=== PATIENT | female | born 1960 | race African-American/Black ===

== ENCOUNTER 2016-11-28 10:13 | Emergency (ER) | payer MEDICAID, OTHER ==
[2016-11-28 10:28] VITALS: BP 94/54
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
== END 2016-11-28 13:02 | disposition home or self-care (01) ==
LOC: ER 10:13
DX: S80.211A Abrasion, right knee, initial encounter (principal); S70.211A Abrasion, right hip, initial encounter; M79.1 Myalgia; R07.81 Pleurodynia; F17.200 Nicotine dependence, unspecified, uncomplicated; V29.88XA Motorcycle rider (driver) (passenger) injured in other specified transport accidents, initial encounter
CPT/HCPCS: 99284

== ENCOUNTER 2017-03-19 14:27 | Emergency (ER) | payer MEDICAID ==
[2017-03-19 14:35] VITALS: BP 128/76
[2017-03-19] MEDS ORDERED: DIPHENHYDRAMINE HCL 50 MG CAPSULE PO ONE (16:55)
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
== END 2017-03-19 17:05 | disposition home or self-care (01) ==
LOC: ER 14:27
DX: S80.861A Insect bite (nonvenomous), right lower leg, initial encounter (principal); W57.XXXA Bitten or stung by nonvenomous insect and other nonvenomous arthropods, initial encounter; F17.210 Nicotine dependence, cigarettes, uncomplicated; I50.9 Heart failure, unspecified; I25.10 Atherosclerotic heart disease of native coronary artery without angina pectoris; E78.00 Pure hypercholesterolemia, unspecified; I11.0 Hypertensive heart disease with heart failure; K21.9 Gastro-esophageal reflux disease without esophagitis; I25.2 Old myocardial infarction; Z95.810 Presence of automatic (implantable) cardiac defibrillator
CPT/HCPCS: 99281; J3490

== ENCOUNTER 2018-03-18 14:44 | Emergency (ER) | payer MEDICAID ==
[2018-03-18] MEDS ORDERED: ONDANSETRON 4 MG TAB.RAPDIS PO ONE (15:11)
--- NOTE | 2018-03-18 15:47 | RADIOLOGY REPORT (SQ) ---
EXAM DESCRIPTION: ACUTE ABDOMEN SERIES COMPLETED DATE/TIME: 03/18/2018 3:33 pm REASON FOR STUDY: abd pain COMPARISON: None. NUMBER OF VIEWS: Three views. TECHNIQUE: Frontal chest, supine abdomen and upright/decubitus abdomen radiographic images acquired. LIMITATIONS: None. FINDINGS: CHEST: Lungs clear of infiltrates. FREE AIR: None. No abnormal gas collections. BOWEL GAS PATTERN: Nonobstructive pattern. No dilated loops or air fluid levels. CALCIFICATIONS: No suspicious calcifications. HARDWARE: None in the abdomen. SOFT TISSUES: No gross mass or suggestion of organomegaly. BONES: No acute fracture. No worrisome bone lesions. OTHER: No other significant finding. IMPRESSION: NO RADIOGRAPHIC EVIDENCE FOR ACUTE ABDOMINAL DISEASE. Minimal fecal material. TECHNICAL DOCUMENTATION: JOB ID: [id number] [employer]- All Rights Reserved Reading location - IP/workstation name: [email or web address]
[2018-03-18 16:01] LABS: ABSOLUTE EOSINOPHILS # (AUTO) 0.2 10^3/uL (0.0-0.6); ABSOLUTE MONOCYTES (AUTO) 0.6 10^3/uL (0.1-1.4); ABSOLUTE NEUT (AUTO) 4.5 10^3/uL (1.7-8.2); BASOPHILS % (AUTO) 0.3 % (0-2); EOSINOPHILS % (AUTO) 2.7 % (0-6); HEMOGLOBIN 12.8 g/dL (12.0-15.5); LYMPHOCYTES % (AUTO) 16.4 % (13-45); MEAN CORPUSCULAR HEMOGLOBIN 27.9 pg (27.0-33.4); MEAN CORPUSCULAR HGB CONC 32.8 g/dL (32.0-36.0); MEAN CORPUSCULAR VOLUME 85 fl (80-97); MONOCYTES % (AUTO) 9.5 % (3-13); PLATELET COUNT 281 10^3/uL (150-450); RED BLOOD COUNT 4.59 10^6/uL (3.72-5.28); RED CELL DISTRIBUTION WIDTH 14.7 % (11.5-14.0); SEGMENTED NEUTROPHILS % (AUTO) 71.1 % (42-78); TOTAL CELLS COUNTED % (AUTO) 100 %; WHITE BLOOD COUNT 6.3 10^3/uL (4.0-10.5)
[2018-03-18 16:23] LABS: ALANINE AMINOTRANSFERASE 25 U/L (9-52); ALBUMIN 4.4 g/dL (3.5-5.0); ALKALINE PHOSPHATASE 93 U/L (38-126); ANION GAP 9 (5-19); ASPARTATE AMINO TRANSFERASE 30 U/L (14-36); BILIRUBIN,DIRECT 0.5 mg/dL (0.0-0.4); BILIRUBIN,TOTAL 0.7 mg/dL (0.2-1.3); BLOOD UREA NITROGEN 21 mg/dL (7-20); CALCIUM 9.8 mg/dL (8.4-10.2); CARBON DIOXIDE 23 mmol/L (22-30); CHLORIDE 112 mmol/L (98-107); GLUCOSE 107 mg/dL (75-110); LIPASE 72.6 U/L (23-300); POTASSIUM 4.2 mmol/L (3.6-5.0); SODIUM 143.9 mmol/L (137-145); TOTAL PROTEIN 7.3 g/dL (6.3-8.2)
--- NOTE | 2018-03-18 16:33 | ER Document Report ---
ED General - General Chief Complaint: Dizziness Stated Complaint: COLD CHILLS,VOMITING,DIZZINESS Time Seen by Provider: 03/18/18 15:01 TRAVEL OUTSIDE OF THE [place] IN LAST 30 DAYS: No - HPI Patient complains to provider of: Dizziness vomiting cold sweats chills hot flashes Notes: Patient coming in with above-stated symptoms ongoing for greater than 24 hours. Patient states she cannot afford the $3 co-pay to see her family physician therefore came to the ER today for her symptoms patient is requesting that I prescribe her a progesterone cream that has helped her in the past. Patient denies any fevers denies any chest pain abdominal pain otherwise is nontoxic upon my evaluation - Related Data Allergies/Adverse Reactions: lisinopril [Lisinopril] Allergy (Verified 03/18/18 14:45) Past Medical History - Social History Smoking Status: Current Some Day Smoker Chew tobacco use (# tins/day): No Frequency of alcohol use: Occasional Drug Abuse: None Family History: Arthritis, CAD, COPD, CVA, Hyperlipidemia, Hypertension, Malignancy, Thyroid Disfunction Patient has suicidal ideation: No Patient has homicidal ideation: No - Past Medical History Cardiac Medical History: Reports: Hx Congestive Heart Failure, Hx Coronary Artery Disease, Hx Heart Attack - "from prior drug abuse"; 2010 cath proves no heart attack, Hx Hypercholesterolemia, Hx Hypertension Denies: Hx Peripheral Vascular Disease, Hx Pulmonary Embolism Pulmonary Medical History: Reports: Hx Bronchitis Denies: Hx COPD, Hx Pneumonia, Hx Tuberculosis Renal/ Medical History: Denies: Hx Peritoneal Dialysis GI Medical History: Reports: Hx Gastroesophageal Reflux Disease, Hx Irritable Bowel. Denies: Hx Hepatitis Musculoskeltal Medical History: Reports Hx Arthritis - back, Reports Hx Musculoskeletal Deformity - Degenerative disc disease, Reports Hx Musculoskeletal Trauma - Left leg Psychiatric Medical History: Reports: Hx Anxiety, Hx Depression, Hx Post Traumatic Stress Disorder Denies: Hx Schizoaffective Disorder Traumatic Medical History: Reports: Hx Fractures - left leg Infectious Medical History: Denies: Hx Hepatitis, Hx HIV Past Surgical History: Reports: Hx Cardiac Catheterization, Hx Cardiac Surgery - Defib/pacemaker, Hx Section - x1, Hx Coronary Stent, Hx Orthopedic Surgery - BUNION SURGERY, Hx Tonsillectomy. Denies: Hx Pacemaker - defibrillator scheduled pacemaker in oct - Immunizations Immunizations up to date: Yes Hx Diphtheria, Pertussis, Tetanus Vaccination: Yes - 08/27/16 Hx Pneumococcal Vaccination: 10/16/12 Review of Systems - Review of Systems Constitutional: Other - Chills hot flashes nausea vomiting dizziness EENT: No symptoms reported Cardiovascular: No symptoms reported Respiratory: No symptoms reported Gastrointestinal: No symptoms reported Genitourinary: No symptoms reported Female Genitourinary: No symptoms reported Musculoskeletal: No symptoms reported Skin: No symptoms reported Hematologic/Lymphatic: No symptoms reported Neurological/Psychological: No symptoms reported -: Yes All other systems reviewed and negative Physical Exam - Vital signs Vitals: Temp Pulse Resp BP Pulse Ox 97.9 F 72 18 160/87 H 98 03/18/18 14:48 03/18/18 14:48 03/18/18 14:48 03/18/18 14:48 03/18/18 14:48 Interpretation: Normal - General General appearance: Appears well, Alert - HEENT Head: Normocephalic, Atraumatic Eyes: Normal Pupils: PERRL - Respiratory Respiratory status: No respiratory distress Chest status: Nontender Breath sounds: Normal Chest palpation: Normal - Cardiovascular Rhythm: Regular Heart sounds: Normal auscultation Murmur: No - Abdominal Inspection: Normal Distension: No distension Bowel sounds: Normal Tenderness: Nontender Organomegaly: No organomegaly - Back Back: Normal, Nontender - Extremities General upper extremity: Normal inspection, Nontender, Normal color, Normal ROM , Normal temperature General lower extremity: Normal inspection, Nontender, Normal color, Normal ROM , Normal temperature, Normal weight bearing. No: Johnna's sign - Neurological Neuro grossly intact: Yes Cognition: Normal Orientation: AAOx4 Remy Coma Scale Eye Opening: Spontaneous Remy Coma Scale Verbal: Oriented Remy Coma Scale Motor: Obeys Commands [place] Coma Scale Total: 15 Speech: Normal Motor strength normal: LUE, RUE, LLE, RLE Sensory: Normal - Psychological Associated symptoms: Normal affect, Normal mood - Skin Skin Temperature: Warm Skin Moisture: Dry Skin Color: Normal Course - Re-evaluation Re-evalutation: 03/18/18 20:37 Explained to patient that the progesterone cream will need to come from her primary care physician patient symptoms of nausea vomiting have improved with medications prescribed. Patient's dizziness although states that she still has mild dizziness when coming into the room is able to ambulate around the ER without any difficulty. Patient will be discharged home follow-up with PCP - Vital Signs Vital signs: Temp Pulse Resp BP Pulse Ox 97.6 F 60 17 151/95 H 98 03/18/18 16:43 03/18/18 16:43 03/18/18 16:43 03/18/18 16:43 03/18/18 16:43 - Laboratory Result Diagrams: 03/18/18 15:48 03/18/18 15:48 Laboratory results interpreted by me: 03/18/18 03/18/18 15:48 15:48 RDW 14.7 H Chloride 112 H BUN 21 H Direct Bilirubin 0.5 H Discharge - Discharge Clinical Impression: Tobacco abuse, Cold and hot flashes, Dizziness Nausea & vomiting Qualifiers: Vomiting type: unspecified Vomiting Intractability: unspecified Qualified Code( s): R11.2 - Nausea with vomiting, unspecified Condition: Good Disposition: HOME, SELF-CARE Instructions: Vomiting ([facility]) Additional Instructions: Your laboratory studies today did not show any acute pathology. Your x-ray does not show any signs abdominal injury. Would recommend she follow-up with your primary care physician. Take Tylenol and Motrin for pain control. Please take prescribed Zofran or Compazine for fever nausea vomiting. Return to ER symptoms worsen Prescriptions: Ondansetron HCl [Zofran 4 mg Tablet] 1 - 2 tab PO Q6 #30 tablet Prochlorperazine Maleate [Compazine] 5 mg PO Q6 #30 tablet Forms: Return to Work
[2018-03-18 16:44] VITALS: BP 151/95
== END 2018-03-18 16:45 | disposition home or self-care (01) ==
LOC: ER 14:44
DX: R11.2 Nausea with vomiting, unspecified (principal); R42 Dizziness and giddiness; R68.83 Chills (without fever); F17.200 Nicotine dependence, unspecified, uncomplicated; I50.9 Heart failure, unspecified; I10 Essential (primary) hypertension; I25.10 Atherosclerotic heart disease of native coronary artery without angina pectoris; E78.00 Pure hypercholesterolemia, unspecified; Z95.810 Presence of automatic (implantable) cardiac defibrillator
CPT/HCPCS: 99284; 36415; 83690; 85025; 80053; 74022; S0119

== ENCOUNTER 2019-11-19 23:28 | Emergency (ER) | payer MEDICARE, MEDICAID ==
[~2019-11-19 23:28] MED LIST: NORMAL SALINE 1000 ML 1,000 ML IV ONE
[2019-11-20 00:20] LABS: ABSOLUTE EOSINOPHILS # (AUTO) 0.2 10^3/uL (0.0-0.6); ABSOLUTE LYMPHOCYTES (AUTO) 1.7 10^3/uL (0.5-4.7); ABSOLUTE MONOCYTES (AUTO) 0.7 10^3/uL (0.1-1.4); BASOPHILS % (AUTO) 0.1 % (0-2); EOSINOPHILS % (AUTO) 2.6 % (0-6); HEMATOCRIT 41.5 % (36.0-47.0); HEMOGLOBIN 13.2 g/dL (12.0-15.5); LYMPHOCYTES % (AUTO) 19.4 % (13-45); MEAN CORPUSCULAR HEMOGLOBIN 27.2 pg (27.0-33.4); MEAN CORPUSCULAR HGB CONC 31.9 g/dL (32.0-36.0); MEAN CORPUSCULAR VOLUME 85 fl (80-97); MONOCYTES % (AUTO) 8.1 % (3-13); PLATELET COUNT 362 10^3/uL (150-450); RED BLOOD COUNT 4.87 10^6/uL (3.72-5.28); RED CELL DISTRIBUTION WIDTH 15.5 % (11.5-14.0); SEGMENTED NEUTROPHILS % (AUTO) 69.8 % (42-78); TOTAL CELLS COUNTED % (AUTO) 100 %; WHITE BLOOD COUNT 8.6 10^3/uL (4.0-10.5)
[2019-11-20 00:33] LABS: ALBUMIN 4.9 g/dL (3.5-5.0); ALKALINE PHOSPHATASE 102 U/L (38-126); ANION GAP 14 (5-19); ASPARTATE AMINO TRANSFERASE 104 U/L (14-36); BILIRUBIN,DIRECT 0.6 mg/dL (0.0-0.4); BILIRUBIN,TOTAL 0.6 mg/dL (0.2-1.3); BLOOD UREA NITROGEN 25 mg/dL (7-20); CALCIUM 9.7 mg/dL (8.4-10.2); CARBON DIOXIDE 14 mmol/L (22-30); CHLORIDE 108 mmol/L (98-107); GLUCOSE 148 mg/dL (75-110); TOTAL PROTEIN 8.2 g/dL (6.3-8.2)
[2019-11-20] MEDS ORDERED: NORMAL SALINE 1000 ML 1,000 ML IV ONE (01:23)
--- NOTE | 2019-11-20 06:13 | EKG REPORT ---
SEVERITY:- ABNORMAL ECG - ATRIAL-VENTRICULAR DUAL-PACED RHYTHM : Confirmed by: Britton Witt MD 20-Nov-2019 06:13:04
[2019-11-20] MEDS ORDERED: RINGERS SOLUTION,LACTATED 1,000 ML IV ONE (06:50)
--- NOTE | 2019-11-20 07:12 | ER Document Report ---
Entered by ABNER STILES SCRIBE 11/20/19 0650 Acting as scribe for:SALLY SEALS MD ED GI/ - General Chief Complaint: Tremor Stated Complaint: MUSCLE SPASMS Time Seen by Provider: 11/20/19 06:35 Primary Care Provider: FIDELIA HANCOCK MD [Primary Care Provider] - Follow up as needed Mode of Arrival: Ambulatory Information source: Patient Notes: This 59 year old female patient presents to the emergency department today with complaints of "muscle spasms". Patient was brought in via EMS and had a blood pressure of 79/56 en route here. Patient was doing a bowel prep last night for a scheduled 10:00am colonoscopy this morning. Patient consumed one bottle of magnesium citrate at 2:00am and another bottle at 5:00am. Patient states she had some nausea as well as GERD related pain prior to arrival. TRAVEL OUTSIDE OF THE [place] IN LAST 30 DAYS: No - Related Data Allergies/Adverse Reactions: lisinopril [Lisinopril] Allergy (Verified 03/18/18 14:45) Past Medical History - General Information source: Patient - Social History Smoking Status: Former Smoker Cigarette use (# per day): No Frequency of alcohol use: None Drug Abuse: None Lives with: Family Family History: Reviewed & Not Pertinent, Arthritis, CAD, COPD, CVA, Hyperlipidemia, Hypertension, Malignancy, Thyroid Disfunction Patient has suicidal ideation: No Patient has homicidal ideation: No - Past Medical History Cardiac Medical History: Reports: Hx Congestive Heart Failure, Hx Coronary Artery Disease, Hx Heart Attack - "from prior drug abuse"; 2010 cath proves no heart attack, Hx Hypercholesterolemia, Hx Hypertension Pulmonary Medical History: Reports: Hx Bronchitis GI Medical History: Reports: Hx Gastroesophageal Reflux Disease, Hx Irritable Bowel Musculoskeletal Medical History: Reports Hx Arthritis - back, Reports Hx Musculoskeletal Deformity - Degenerative disc disease, Reports Hx Musculoskele shahriar Trauma - Left leg Psychiatric Medical History: Reports: Hx Anxiety, Hx Depression, Hx Post Traumatic Stress Disorder Traumatic Medical History: Reports: Hx Fractures - left leg Past Surgical History: Reports: Hx Cardiac Catheterization, Hx Cardiac Surgery - Defib/pacemaker, Hx Section - x1, Hx Coronary Stent, Hx Orthopedic Surgery - BUNION SURGERY, Hx Tonsillectomy. Denies: Hx Pacemaker - defibrillator scheduled pacemaker in oct - Immunizations Immunizations up to date: Yes Hx Diphtheria, Pertussis, Tetanus Vaccination: Yes - 08/27/16 Hx Pneumococcal Vaccination: 10/16/12 Review of Systems - Review of Systems Constitutional: No symptoms reported EENT: No symptoms reported Cardiovascular: No symptoms reported Respiratory: No symptoms reported Gastrointestinal: See HPI, Diarrhea, Nausea, Other - GERD related pain Genitourinary: No symptoms reported Female Genitourinary: No symptoms reported Musculoskeletal: No symptoms reported Skin: No symptoms reported Hematologic/Lymphatic: No symptoms reported Neurological/Psychological: No symptoms reported -: Yes All other systems reviewed and negative Physical Exam - Vital signs Vitals: Pulse Ox 100 11/19/19 23:41 - Notes Notes: Physical Exam: General: Alert, appears well. HEENT: Normocephalic. Atraumatic. PERRL. Extraocular movements intact. Oropharynx clear. Neck: Supple. Non-tender. Respiratory: No respiratory distress. Clear and equal breath sounds bilaterally. Cardiovascular: Regular rate and rhythm. Abdominal: Normal Inspection. Non-tender. No distension. Normal Bowel Sounds. Back: No gross abnormalities. Extremities: Moves all four extremities. Upper extremities: Normal inspection. Normal ROM. Lower extremities: Normal inspection. No edema. Normal ROM. Neurological: Normal cognition. AAOx4. Normal speech. Psychological: Normal affect. Normal Mood. Skin: Warm. Dry. Normal color. Course - Vital Signs Vital signs: Temp Pulse Resp BP Pulse Ox 98.4 F 64 14 122/70 98 11/19/19 23:48 11/19/19 23:48 11/20/19 07:01 11/20/19 07:01 11/20/19 07:01 - Laboratory Result Diagrams: 11/19/19 23:49 11/19/19 23:49 Laboratory results interpreted by me: 11/19/19 11/19/19 23:49 23:49 MCHC 31.9 L RDW 15.5 H Sodium 135.9 L Chloride 108 H Carbon Dioxide 14 L BUN 25 H Creatinine 1.54 H Est GFR ( Amer) 42 L Est GFR (MDRD) Non-Af 35 L Glucose 148 H Direct Bilirubin 0.6 H AST 104 H ALT 71 H Discharge - Discharge Clinical Impression: Dehydration, Acute kidney injury, Muscle spasm Hypotension Qualifiers: Hypotension type: unspecified hypotension type Qualified Code(s): I95.9 - Hypotension, unspecified Condition: Stable Disposition: HOME, SELF-CARE Additional Instructions: You became dehydrated today because of the excessive output following the magnesium citrate. This probably contributed to your muscle cramping. This also started to injure your kidneys. Today you should rest and drink plenty of fluids throughout the day to rehydrate yourself. It would be best not to have the colonoscopy done today. Follow-up with your primary care provider as needed. RETURN TO THE EMERGENCY ROOM IF ANY NEW OR WORSENING SYMPTOMS. Referrals: FIDELIA HANCOCK MD [Primary Care Provider] - Follow up as needed Scribe Attestation: 11/20/19 08:52 I personally performed the services described in the documentation, reviewed and edited the documentation which was dictated to the scribe in my presence, and it accurately records my words and actions. I personally performed the services described in the documentation, reviewed and edited the documentation which was dictated to the scribe in my presence, and it accurately records my words and actions.
[2019-11-20 09:17] VITALS: BP 146/90
== END 2019-11-20 09:23 | disposition home or self-care (01) ==
LOC: ER 23:28
DX: E86.0 Dehydration (principal); N17.9 Acute kidney failure, unspecified; M62.838 Other muscle spasm; I95.9 Hypotension, unspecified; K21.9 Gastro-esophageal reflux disease without esophagitis; R11.0 Nausea; R19.7 Diarrhea, unspecified; I10 Essential (primary) hypertension; I25.10 Atherosclerotic heart disease of native coronary artery without angina pectoris; Z88.8 Allergy status to other drugs, medicaments and biological substances; Z87.891 Personal history of nicotine dependence
CPT/HCPCS: 93005; 99284; 96360; 96361; 36415; 83690; 85025; 80053; 93010; J7030 ×2; J7120

== ENCOUNTER 2019-11-20 09:33 | Day surgery (SDC) | payer MEDICARE, MEDICAID ==
[~2019-11-20 09:33] MED LIST changes: -NORMAL SALINE 1000 ML 1,000 ML IV ONE; +PROPOFOL INJ 200 MG/20 ML VIAL IV ONE
--- NOTE | 2019-11-20 12:18 | Operative Report ---
Operative Report DATE OF SURGERY: 11/20/19 Operative Report: Risk benefits and alternatives of the procedure including the risk of bleeding, perforation requiring surgery are explained to the patient in detail and informed consent is obtained Timeout was called. Propofol medication is administered. Rectal examination is done which did not reveal any masses, tears or fissures. Olympus videoscope was inserted into the patient's rectum. Scope was advanced all the way to the cecum. The various segments of the colon evaluated. Prep was good. Retroflexion maneuvers performed. PREOPERATIVE DIAGNOSIS: Colorectal cancer screening POSTOPERATIVE DIAGNOSIS: Sigmoid colon polyp removed via snare polypectomy and retrieved OPERATION: Colonoscopy with snare polypectomy SURGEON: BEN WILSON ANESTHESIA: LMAC TISSUE REMOVED OR ALTERED: As noted above. COMPLICATIONS: None. ESTIMATED BLOOD LOSS: None. INTRAOPERATIVE FINDINGS: As noted above. PROCEDURE: Patient tolerated the procedure well. No immediate postprocedure complications are noted. Patient is discharged in good condition. Discharge date 11/20/2019. Discharge diet: Regular. Discharge activity: Regular. 2 to 3-week follow-up to discuss findings. Patient is instructed to call the office or proceed to the emergency room should there be any further problems or questions. Wait on the pathology. 3 to 5-year surveillance colonoscopy.
[2019-11-20 14:06] VITALS: BP 127/75
== END 2019-11-20 12:30 | disposition home or self-care (01) ==
LOC: END 09:33
PROVIDERS: ATTEND Internal Medicine Gastroenterology
DX: Z12.11 Encounter for screening for malignant neoplasm of colon (principal); D12.5 Benign neoplasm of sigmoid colon; I25.10 Atherosclerotic heart disease of native coronary artery without angina pectoris; I42.9 Cardiomyopathy, unspecified; I11.0 Hypertensive heart disease with heart failure; I50.22 Chronic systolic (congestive) heart failure; E78.5 Hyperlipidemia, unspecified; F17.210 Nicotine dependence, cigarettes, uncomplicated; Z79.899 Other long term (current) drug therapy; Z79.82 Long term (current) use of aspirin; Z88.8 Allergy status to other drugs, medicaments and biological substances
CPT/HCPCS: 45385; 00812; J2704; 812